=== PATIENT | female | born 1965 | race Caucasian/White ===

== ENCOUNTER 2017-05-08 18:32 | Emergency (ER) | payer OTHER ==
[~2017-05-08] VITALS: Ht 172.7 cm; Wt 79.4 kg
[~2017-05-08 18:32] MED LIST: ENDOCET 5-3251 EACH PO; Motrin PO
[2017-05-08 21:00] VITALS: BP 127/88
== END 2017-05-08 21:04 | disposition home or self-care (01) ==
LOC: EME 18:32
DX: S90.122A Contusion of left lesser toe(s) without damage to nail, initial encounter (principal); W22.8XXA Striking against or struck by other objects, initial encounter
CPT/HCPCS: 73630; 99281; 99283